=== PATIENT | female | born 1980 | race Caucasian/White ===

== ENCOUNTER 2018-03-12 15:18 | Emergency (ER) | END 2018-03-12 19:45 | disposition home or self-care (01) ==

== ENCOUNTER 2018-12-17 15:30 | Emergency (ER) | payer MEDICAID ==
[~2018-12-17] VITALS: Ht 165.1 cm; Wt 93.4 kg
[~2018-12-17 15:30] MED LIST: IBUP-1542 PO
[2018-12-17 15:45] VITALS: Ht 165.1 cm; Wt 93.4 kg
--- NOTE | 2018-12-17 17:04 | ERD ---
ER Documentation Chief Complaint Chief Complaint GENERALIZED BODY RASH HPI 38-year-old female, at 30 weeks , presents to the emergency department, complaining of generalized erythematous, pruritic body rash. Otherwise, the patient refers feeling fine, adequate movement, no abdominal pain, no vaginal bleeding, no fever or chills. ROS All systems reviewed and are negative except as per history of present illness. Medications Home Meds Active Scripts Cephalexin* (Keflex*) 500 Mg Capsule, 500 MG PO QID for 7 Days, CAP Prov:LAURA COUGHLIN MD 12/17/18 Prednisone* (Prednisone*) 20 Mg Tab, 40 MG PO DAILY for 4 Days, TAB Prov:LAURA COUGHLIN MD 12/17/18 Cetirizine Hcl* (Cetirizine Hcl*) 10 Mg Tablet, 10 MG PO DAILY, #30 TAB Prov:LAURA COUGHLIN MD 12/17/18 Ibuprofen* (Motrin*) 600 Mg Tab, 600 MG PO Q6, #30 TAB Prov:BLANCA CASTANEDA PA-C 03/12/18 Allergies Allergies: Coded Allergies: No Known Allergy (Unverified , 12/17/18) PMhx/Soc History of Surgery: Yes (c sec x's 1) Anesthesia Reaction: No Hx Alcohol Use: No Hx Substance Use: No Hx Tobacco Use: No FmHx Family History: No diabetes, No coronary disease Physical Exam Vitals Vital Signs Date Temp Pulse Resp B/P (MAP) Pulse Ox O2 O2 Flow FiO2 Time Delivery Rate 12/17/18 97.7 81 16 111/65 99 Room Air 18:40 (80) 12/17/18 97.6 91 16 108/56 98 15:45 (73) Physical Exam Const: No acute distress Head: Atraumatic Eyes: Normal Conjunctiva ENT: Normal External Ears, Nose and Mouth. Neck: Full range of motion. No meningismus. Resp: Clear to auscultation bilaterally Cardio: Regular rate and rhythm, no murmurs Abd: Uterus gravid, soft, non tender, non distended. Normal bowel sounds Skin: Discrete erythematous papules predominantly in the abdomen and upper extremities Back: No midline or flank tenderness Ext: No cyanosis, or edema Neur: Awake and alert Psych: Normal Mood and Affect Result Diagram: 12/17/18 1741 12/17/18 1741 Results 24 hrs Laboratory Tests Test 12/17/18 17:41 White Blood Count 9.2 10^3/ul Red Blood Count 3.80 10^6/ul Hemoglobin 10.9 g/dl Hematocrit 32.2 % Mean Corpuscular Volume 84.7 fl Mean Corpuscular Hemoglobin 28.7 pg Mean Corpuscular Hemoglobin Concent 33.9 g/dl Red Cell Distribution Width 15.1 % Platelet Count 304 10^3/UL Mean Platelet Volume 9.8 fl Immature Granulocytes % 1.200 % Neutrophils % 75.9 % Lymphocytes % 15.6 % Monocytes % 5.8 % Eosinophils % 1.1 % Basophils % 0.4 % Nucleated Red Blood Cells % 0.0 /100WBC Immature Granulocytes # 0.110 10^3/ul Neutrophils # 7.0 10^3/ul Lymphocytes # 1.4 10^3/ul Monocytes # 0.5 10^3/ul Eosinophils # 0.1 10^3/ul Basophils # 0.0 10^3/ul Nucleated Red Blood Cells # 0.0 10^3/ul Urine Color STRAW Urine Clarity SLIGHTLY CLOUDY Urine pH 6.0 Urine Specific [place] 1.003 Urine Ketones NEGATIVE mg/dL Urine Nitrite NEGATIVE mg/dL Urine Bilirubin NEGATIVE mg/dL Urine Urobilinogen NEGATIVE mg/dL Urine Leukocyte Esterase 1+ Nayan/ul Urine Microscopic RBC 5 /HPF Urine Microscopic WBC 9 /HPF Urine Squamous Epithelial Cells FEW /HPF Urine Bacteria MANY /HPF Urine Hemoglobin NEGATIVE mg/dL Urine Glucose NEGATIVE mg/dL Urine Total Protein NEGATIVE mg/dl Sodium Level 135 mmol/L Potassium Level 3.9 mmol/L Chloride Level 104 mmol/L Carbon Dioxide Level 21 mmol/L Anion Gap 10 Blood Urea Nitrogen 3 mg/dl Creatinine 0.50 mg/dl Est Glomerular Filtrat Rate mL/min > 60 mL/min Glucose Level 80 mg/dl Calcium Level 8.9 mg/dl Total Bilirubin 0.2 mg/dl Direct Bilirubin 0.00 mg/dl Indirect Bilirubin 0.2 mg/dl Aspartate Amino Transf (AST/SGOT) 17 IU/L Alanine Aminotransferase (ALT/SGPT) 17 IU/L Alkaline Phosphatase 72 IU/L Total Protein 7.1 g/dl Albumin 3.6 g/dl Globulin 3.50 g/dl Albumin/Globulin Ratio 1.02 Current Medications Medications Dose Sig/Tequila Start Time Status Last (Trade) Ordered Route PRN Stop Time Admin Dose Reason Admin Prednisone 40 mg ONCE ONCE 12/17/18 DC 12/17/18 (Prednisone) PO 17:30 17:45 12/17/18 17:34 50 mg ONCE ONCE 12/17/18 DC 12/17/18 Diphenhydrami PO 17:30 17:45 ne HCl 12/17/18 17:34 (Benadryl) Procedures/MDM Differential diagnosis include but not limited to: Cholestasis of , contact dermatitis, infectious process like scabies, tinea, cellulitis, eczema, insect bites. Physical examination and clinical presentation consistent most likely with dermatosis of , the patient was also found to have an incidental urinary tract infection that is going to be treated. During the ED course the patient remained stable, no new complaints. Clinical impression discussed with the patient who agrees with management. The patient is stable to be treated outpatient and will be discharged home with a Rx for steroids and antibiotics for the UTI, some side effects of prescribed medications (headache, rash, nausea, vomiting, diarrhea, interactions with other medications) were reviewed. The patient was instructed to follow up with the primary care provider in the next 48h. If symptoms persist, worsen or new symptoms develop, then patient should return to the ED immediately. Instructions explained and given directly by me to the patient with acknowledgment and demonstrated understanding. Disclaimer: Inadvertent spelling and grammatical errors are likely due to EHR/dictation software use and do not reflect on the overall quality of patient care. Also, please note that the electronic time recorded on this note does not necessarily reflect the actual time of the patient encounter. Departure Diagnosis: Primary Impression: 30 weeks gestation of Additional Impressions: Pruritic erythematous rash UTI (urinary tract infection) Condition: Stable Additional Instructions: Muchas paulino por [facility] para phan servicio. Esperamos que en phan visita a la dorie de emergencia phan problema medico haya sido solucionado y que se sienta mucho mejor. Para estar seguros que phan mejoria sigue en proceso, le pedimos el favor de hacer diana joe de seguimiento medico con phan doctor primario en los proximos 2-4 richardson. Lleve con usted estos documentos y las medicinas recetadas. Si ciera sintomas empeoran, NO SE ESPERE, por favor regrese a dorie de emergencia INMEDIATAMENTE. En anastasia que usted no tenga un mdico de atencin primaria: Llame al mdico o clnica comunitaria de referencia que aparece abajo kevin las horas de consultorio para hacer diana joe para que le vean. CLINICAS: [facility] [phone] [facility] [phone] [facility] [phone] [facility] [phone] [facility] [phone] [facility]. [phone] LAURA JORGE MD Dec 17, 2018 17:04
[2018-12-17] MEDS ORDERED: predniSONE 20 MG TAB PO ONE (17:30)
[2018-12-17] MEDS ORDERED: DIPHENHYDRAMINE 50 MG CAP PO ONE (17:30)
[2018-12-17] MEDS ORDERED: CETI10TA19 PO (18:28)
[2018-12-17] MEDS ORDERED: PRED20TA PO (18:28)
[2018-12-17] MEDS ORDERED: CEPH-443 PO (18:28)
[2018-12-17 18:40] VITALS: BP 111/65; PULSE 81; RESP 16
== END 2018-12-17 18:40 | disposition home or self-care (01) ==
LOC: FTE 15:30
DX: O26.86 Pruritic urticarial papules and plaques of pregnancy (PUPPP) (principal); O23.43 Unspecified infection of urinary tract in pregnancy, third trimester; Z3A.30 30 weeks gestation of pregnancy
CPT/HCPCS: 80053; 81001; 85025; J7512; Z7502; Z7610; 99283

== ENCOUNTER 2019-02-04 13:32 | Inpatient (IN) | payer MEDICAID ==
[~2019-02-04] VITALS: Ht 160 cm; Wt 98.1 kg
[~2019-02-04 13:32] MED LIST changes: +CEPH-443 PO; +CETI10TA19 PO; +PRED20TA PO
[2019-02-04] MEDS ORDERED: PNV11TAB PO (13:40)
[2019-02-04 13:41] VITALS: Ht 160 cm; Wt 98.1 kg
[2019-02-04 13:42] VITALS: BP 111/75; PULSE 83; RESP 19
[2019-02-04] MEDS ORDERED: CARBOPROST 250 MCG INJ IM PRN ×2 (16:00→20:30)
[2019-02-04] MEDS ORDERED: CEFAZOLIN 2 GM/50 ML (PMX) 50 ML IVPB SCH (16:00)
[2019-02-04] MEDS ORDERED: METHYLERGONOVINE 0.2 MG INJ IM PRN ×2 (16:00→20:30)
[2019-02-04] MEDS ORDERED: OXYTOCIN 30 UNITS/LR 500 ML IV SCH ×2 (16:00→20:25)
[2019-02-04] MEDS ORDERED: MISOPROSTOL 200 MCG TAB PR PRN ×2 (16:00→20:30)
[2019-02-04] MEDS ORDERED: OXYTOCIN 30 UNITS/LR 500 ML IV PRN ×2 (16:00→20:30)
[2019-02-04] MEDS: LACTATED RINGER'S 1,000 ML IV SCH ×2 (16:28→23:54)
--- NOTE | 2019-02-04 16:55 | PREAC ---
Date/Time of Note Date/Time of Note DATE: 02/04/19 TIME: 16:54 Anesthesia Eval and Record Evaluation Time Pre-Procedure Interview DATE: 02/04/19 TIME: 16:54 Age 38 Sex female NPO: 8 hrs Preoperative diagnosis labor pain Planned procedure c section Past Medical History Past Medical History: Includes : Gestational age: (37) Surgery & Anesthesia Issues Hx of delayed emergence (spinal not working, put her sleep, woke up 9 pm from 8 am), No known issue Meds Anticoagulation: No Beta Bryanna within 24 hr: No Reason Beta Bryanna not given: Pt. not on B-Bryanna Reported Medications [id number] ( 19) 1 Each Tablet, 1 TAB PO DAILY, TAB 02/04/19 Discontinued Scripts Cephalexin* (Keflex*) 500 Mg Capsule, 500 MG PO QID for 7 Days, CAP Prov:LAURA COUGHLIN MD 12/17/18 Prednisone* (Prednisone*) 20 Mg Tab, 40 MG PO DAILY for 4 Days, TAB Prov:LAURA COUGHLIN MD 12/17/18 Cetirizine Hcl* (Cetirizine Hcl*) 10 Mg Tablet, 10 MG PO DAILY, #30 TAB Prov:LAURA COUGHLIN MD 12/17/18 Ibuprofen* (Motrin*) 600 Mg Tab, 600 MG PO Q6, #30 TAB Prov:BLANCA CASTANEDA PA-C 03/12/18 Current Medications Lactated Ringer's 1,000 ml @ 125 mls/hr Q8H IV Last administered on 02/04/19at 16:28; Admin Dose 125 MLS/HR; Start 02/04/19 at 15:54 Cefazolin Sodium/ Dextrose 50 ml @ 100 mls/hr ONCE IVPB ; Start 02/04/19 at 16:00 Oxytocin/Lactated Ringer's 500 ml @ 125 mls/hr POST IV ; Start 02/04/19 at 16:00 Oxytocin/Lactated Ringer's 500 ml @ 0 mls/hr ONCE PRN IV .VAGINAL BLEEDING; Start 02/04/19 at 16:00 Methylergonovine Maleate (Methergine) 0.2 mg ONCE PRN IM .VAGINAL BLEEDING; Start 02/04/19 at 16:00 Carboprost Tromethamine (Hemabate) 250 mcg ONCE PRN IM .VAGINAL BLEEDING; Start 02/04/19 at 16:00 Misoprostol (Cytotec) 1,000 mcg ONCE PRN MN .VAGINAL BLEEDING; Start 02/04/19 at 16:00 Meds reviewed: Yes Allergies Coded Allergies: No Known Allergy (Unverified , 12/17/18) Allergies Reviewed: Yes Labs/Studies Labs Reviewed: Reviewed by anesthesiologist Result Diagram: 02/04/19 1630 Laboratory Tests 02/04/19 16:30 test: Positive Studies: ECG (n/a), CXR (n/a) Pre-procedure Exam Last vitals Vital Signs Date Temp Pulse Resp B/P (MAP) Pulse Ox O2 O2 Flow FiO2 Time Delivery Rate 02/04/19 98.6 83 19 111/75 13:42 (87) Airway: Adequate mouth opening Mallampati: Mallampati I Teeth: Normal Lung: Normal Heart: Normal ASA Physical Status ASA physical status: 2 Emergency: None Planned Anesthetic Neuraxial: Spinal Planned Pain Management Sub-arachniod narcotics Pre-operative Attestations Prior to commencing anesthesia and surgery, the patient was re-evaluated, there was verification of: *The patient's identity *The results of appropriate recent lab work and preoperative vital signs *The above evaluation not changing prior to induction *Anesthetic plan, risk benefits, alternative and complications discussed with patient/family; questions answered; patient/family understands, accepts and wishes to proceed. DYLAN ZIEGLER MD Feb 04, 2019 16:55
--- NOTE | 2019-02-04 17:35 | PREOPHP ---
DATE OF ADMISSION: 02/04/2019 HISTORY OF PRESENT ILLNESS: Ms. Julia Rojo is a 38-year-old 2, para 1, EDC 02/24/2019, i ntrauterine at 37 weeks and 1 day gestational age, presented to triage complaining of contr actions since last night. She denies any headache, nausea, vomiting, shortness of breath, visual scott nge or epigastric pain. She had a limited ultrasound performed with fetus in breech presentation. A fter explaining the risks, benefits and alternatives, the patient desires an elective delive ry. Her care took place with Dr. Pichardo. PAST MEDICAL HISTORY: None. MEDICATIONS: vitamins. PAST SURGICAL HISTORY: None. OBSTETRICAL HISTORY: x1 . GYNECOLOGIC HISTORY: 12, regular 3 to 4 days. Denies any sexually transmitted infections. Sexually active with 1 partner. SOCIAL HISTORY: Denies any smoking, drugs or alcohol. FAMILY HISTORY: None. REVIEW OF SYSTEMS: All within normal except history of present illness. PHYSICAL EXAMINATION: HEENT: Within normal. LUNGS: CTA bilateral. CARDIOVASCULAR: S1, S2. Regular rate, rhythm. ABDOMEN: Gravid, nontender. Negative CVA bilateral. EXTREMITIES: No calf tenderness. PELVIC: Vaginal exam: 2 cm dilated, 50% effaced, head is not palpable. DIAGNOSTIC DATA: Preliminary ultrasound: Fetus in breech presentation. heart tracing categor y 1. Witmer: Regular contractions. ASSESSMENT: 1. A 38-year-old 2, para 1, intrauterine at 37 weeks and 1 day gestational age. 2. Advanced maternal age. 3. Previous section x1, in labor. 4. malpresentation. 5. Desires elective repeat delivery. 6. Declined vaginal after . PLAN: Consent for a repeat delivery. Risks, benefits and alternatives were explained. All questions were answered. Dictated By: HORTENSIA IRAHETA/JARED Conf#: [id number] DID#: [id number]
[2019-02-04] MEDS ORDERED: morphine SULFATE/PF (10 MG/10 ML) INJ ONE (18:14)
[2019-02-04] MEDS ORDERED: ONDANSETRON 4 MG INJ ONE (18:15)
[2019-02-04] MEDS ORDERED: METOCLOPRAMIDE 10 MG INJ ONE (18:15)
[2019-02-04] MEDS ORDERED: KETOROLAC 30 MG INJ ONE (18:23)
[2019-02-04] MEDS ORDERED: EPHEDrine 25 MG/5 ML SYG ONE (18:46)
[2019-02-04] MEDS ORDERED: PHENYLephrine (100 MCG/ML) 10ML SYG ONE (18:59)
[2019-02-04] MEDS ORDERED: ONDANSETRON 4 MG INJ IV PRN ×2 (19:30)
[2019-02-04] MEDS ORDERED: NALOXONE (0.4 MG/ML) INJ IV PRN (19:30)
[2019-02-04] MEDS ORDERED: MEPERIDINE 25 MG INJ IV PRN (19:30)
[2019-02-04] MEDS ORDERED: DIPHENHYDRAMINE 50 MG INJ IV PRN ×2 (19:30)
[2019-02-04] MEDS ORDERED: KETOROLAC 30 MG INJ IV PRN ×2 (19:30)
[2019-02-04] MEDS ORDERED: morphine 2 MG INJ IV PRN ×6 (19:30)
--- NOTE | 2019-02-04 20:25 | OPPN ---
Date/Time of Note Date/Time of Note DATE: 02/04/19 TIME: 20:24 Operative Report Planned Procedure Procedure date Feb 04, 2019 Procedure(s) repeat low transverse CD Performed by see signature line Technical Business Systems Analyst: FIOR REECE MD 2nd Technical Business Systems Analyst none Anesthesiologist: DYLAN ZIEGLER MD Pre-procedure diagnosis 1. A 38-year-old 2, para 1, intrauterine at 37 weeks and 1 day gestational age. 2. Advanced maternal age. 3. Previous section x1, in labor. 4. malpresentation. 5. Desires elective repeat delivery. 6. Declined vaginal after . Lyxse6Ka Anesthesia Type: Sfmuz3y spinal Post-Procedure Post-procedure diagnosis same Findings Live Baby [], Apgars [] and [], weight [], position [], [] presentation []cord. Estimated Blood Loss: 500 - 600 mls Specimen(s) none Grafts/Implant(s) none Complication(s) none HORTENSIA BENÍTEZ MD Feb 04, 2019 20:25
[2019-02-04] MEDS ORDERED: LANOLIN HPA 1 PKT TOP PRN (20:30)
[2019-02-04] MEDS ORDERED: NACL 0.9% 3 ML SYG IV SCH (20:30)
[2019-02-04] MEDS: CEFAZOLIN 2 GM/50 ML (PMX) 50 ML IVPB SCH (21:33)
[2019-02-04 22:15] VITALS: BP 101/57; PULSE 79; RESP 19
[2019-02-05 04:30] VITALS: BP 99/55; PULSE 86; RESP 19
[2019-02-05] MEDS: CEFAZOLIN 2 GM/50 ML (PMX) 50 ML IVPB SCH ×2 (05:10→13:16)
--- NOTE | 2019-02-05 07:08 | OPPN ---
Date/Time of Note Date/Time of Note DATE: 02/05/19 TIME: 07:06 Anesthesia Follow up Anesthesia Follow up Last documented vital signs Vital Signs Date Temp Pulse Resp B/P (MAP) Pulse Ox O2 O2 Flow FiO2 Time Delivery Rate 02/05/19 98.3 86 19 99/55 (70) Room Air 04:30 Respiratory function: WNL Cardiovascular function: WNL Comments A 38 year female s/p spina duramorph for post o pain POD #1 is doing fine. No pain, itching, N/V, headache, neural deficit. care per surgery DYLAN ZIEGLER MD Feb 05, 2019 07:08
--- NOTE | 2019-02-05 07:09 | PAC ---
Date/Time of Note Date/Time of Note DATE: 02/05/19 TIME: 07:08 Post-Anesthesia Notes Post-Anesthesia Note Last documented vital signs Vital Signs Date Temp Pulse Resp B/P (MAP) Pulse Ox O2 O2 Flow FiO2 Time Delivery Rate 02/05/19 98.3 86 19 99/55 (70) 99 Room Air 04:30 Activity: WNL Respiratory function: WNL Cardiovascular function: WNL Mental status: Baseline Pain reasonably controlled: Yes Hydration appropriate: Yes Nausea/Vomiting absent: No DYLAN ZIEGLER MD Feb 05, 2019 07:09
[2019-02-05 08:00] VITALS: BP 93/55; PULSE 74; RESP 18
--- NOTE | 2019-02-05 08:12 | QN ---
Documentation Comment progress note pod 1 patient was seen and evaluated no complaints vs stable afebrile ab dressing clean/dry no distention extremity no edema no calf tenderness a/ sp cd pod 1 stable afebrile p/ continue present management HORTENSIA BENÍTEZ MD Feb 05, 2019 08:12
--- NOTE | 2019-02-05 08:29 | OPR ---
DATE OF OPERATION: 02/04/2019 PRIMARY DIAGNOSIS: A 38-year-old 2, para 1, intrauterine at 37 weeks and 1 day ges tational age, advanced maternal age, previous x1, in labor, malpresentation, desires elective repeat delivery. Declined vaginal after . POSTOPERATIVE DIAGNOSIS: A 38-year-old 2, para 1, intrauterine at 37 weeks and 1 d ay gestational age, advanced maternal age, previous x1, in labor, malpresentation, de sires elective repeat delivery. Declined vaginal after . OPERATION PERFORMED: Repeat low transverse delivery. SURGEON: Paul Elias MD NUCLEAR MEDICINE OFFICER: Dr. Mehta. ESTIMATED BLOOD LOSS: 500 mL. COMPLICATIONS: None. ANESTHESIA: Spinal. FINDINGS: A viable female, in footling breech presentation, 9 and 9 respectively at 1 and 5 mi nutes. Normal uterus, tubes and ovaries. DESCRIPTION OF PROCEDURE: After explaining the risks, benefits and alternatives, the patient had con sent signed in chart, the patient was taken to the operating room where spinal anesthesia was found t o be adequate. She was then prepared and draped in normal sterile fashion in dorsal position with a leftward tilt. A Pfannenstiel skin incision was then made with a scalpel and carried to the underlyi ng of the fascia. The fascia was incised in midline and incision was extended laterally with Rice sc issors. The superior aspect of the fascial incision was grasped with curved clamps, elevated and the underlying rectus muscles dissected off bluntly. Attention was then turned to the inferior aspect o f incision, which in similar fashion was grasped, tented up with curved clamps and rectus muscles dis sected off bluntly. The rectus muscle was in midline, peritoneum identified, tented up, an d sharply with Metzenbaum scissors. The peritoneal incision was extended superiorly with good visual ization of bladder. The bladder blade was then inserted and the lower uterine segment incised in tra nsverse fashion with a scalpel. The uterine incision was extended laterally. The bladder blade was removed and the 's feet were delivered to the level of the scapula. The right arm was flipped across the chest and delivered. Similarly, the left arm was flipped across the chest and delivered. The head was delivered atraumatically. The nose and mouth were suctioned and cord clamped and cut. The infant was handed off to awaiting book mender. The placenta was then removed. The uteru s extracted and cleared of all clots and debris. The uterine incision was repaired with 1-0 chromic in a running locked fashion. A second layer of same suture was used for imbrication and obtained exc ellent hemostasis. The uterus was returned to the abdomen. The gutters were cleared of all clots. The peritoneum and rectus abdominis muscles were approximated with 2-0 Vicryl in interrupted fashion. The fascia was reapproximated with 0 Vicryl in a running fashion. The subcutaneous tissue was reap proximated with 2-0 plain gut in a running fashion. The skin was closed with absorbable pilar. Th e patient tolerated procedure well. Sponge, lap and needle counts were correct. The patient was neva en to recovery room in stable condition. Dictated By: PAUL IRAHETA/JARED Conf#: [id number] DID#: [id number]
[2019-02-05] MEDS: FERROUS SULFATE (EC) 325 MG TAB PO SCH ×2 (10:44→20:50)
[2019-02-05 12:00] VITALS: BP 98/55; PULSE 74; RESP 19
[2019-02-05] MEDS: LACTATED RINGER'S 1,000 ML IV SCH ×3 (14:22→23:54)
[2019-02-05 16:00] VITALS: BP 95/57; PULSE 78; RESP 19
[2019-02-05 19:40] VITALS: BP 122/79; PULSE 62; RESP 19
[2019-02-05] MEDS: IBUPROFEN 800 MG TAB PO SCH (21:58)
[2019-02-06] MEDS: OXYCODONE/ACETAMINOPHEN (5/325) TAB PO PRN ×3 (03:07→16:48)
[2019-02-06 04:00] VITALS: BP 106/68; PULSE 73; RESP 20
[2019-02-06] MEDS: IBUPROFEN 800 MG TAB PO SCH ×3 (05:39→21:44)
[2019-02-06] MEDS: LACTATED RINGER'S 1,000 ML IV SCH (07:54)
[2019-02-06 08:00] VITALS: BP 109/70; PULSE 72; RESP 18
[2019-02-06] MEDS: FERROUS SULFATE (EC) 325 MG TAB PO SCH ×2 (09:07→21:10)
[2019-02-06 16:00] VITALS: BP 103/78; PULSE 54; RESP 19
[2019-02-06 19:50] VITALS: BP 117/68; PULSE 69; RESP 20
--- NOTE | 2019-02-06 21:23 | QN ---
Documentation Comment Postop day #2 Status post repeat Patient stable and afebrile Vital signs stable VS - Last 72 Hours, by Label Date Temp Pulse Resp B/P (MAP) Pulse Ox O2 O2 Flow FiO2 Time Delivery Rate 02/07/19 97.9 65 18 100/61 Room Air 09:12 (74) 02/07/19 98.4 71 19 99/59 (72) Room Air 04:35 02/06/19 98.5 69 20 117/68 Room Air 19:50 (84) 02/06/19 98.0 54 19 103/78 Room Air 16:00 (86) 02/06/19 97.3 72 18 109/70 08:00 (83) 02/06/19 98.0 73 20 106/68 Room Air 04:00 (81) 02/05/19 98.3 62 19 122/79 Room Air 19:40 (93) 02/05/19 98.4 78 19 95/57 (70) 96 Room Air 16:00 02/05/19 98.3 74 19 98/55 (69) 96 Room Air 12:00 02/05/19 97.9 74 18 93/55 (68) 96 Room Air 08:00 02/05/19 98.3 86 19 99/55 (70) Room Air 04:30 02/04/19 98.3 79 19 101/57 Room Air 22:15 (72) Hematology - 72 Hrs Test 02/05/19 07:31 Hematocrit 30.9 % (37.0-47.0) L Hemoglobin 10.3 g/dl (12.0-16.0) L Mean Corpuscular Hemoglobin 27.6 pg (29.0-33.0) L Mean Corpuscular Hemoglobin Concent 33.3 g/dl (32.0-37.0) Mean Corpuscular Volume 82.8 fl (82.0-101.0) Mean Platelet Volume 10.0 fl (7.4-10.4) Platelet Count 212 10^3/UL (140-415) Red Blood Count 3.73 10^6/ul (4.20-5.40) L Red Cell Distribution Width 15.2 % (11.5-14.5) H White Blood Count 10.1 10^3/ul (4.8-10.8) # Abdomen soft, fundus firm Incision clean,dry,intact Extremities nontender Assessment and plan Patient stable and doing well Encouraged to ambulate Continue with routine postop care TERRY HERNANDEZ MD Feb 06, 2019 21:23
[2019-02-07] MEDS: OXYCODONE/ACETAMINOPHEN (5/325) TAB PO PRN ×2 (02:32→09:19)
[2019-02-07 04:35] VITALS: BP 99/59; PULSE 71; RESP 19
[2019-02-07] MEDS: IBUPROFEN 800 MG TAB PO SCH (05:48)
[2019-02-07] MEDS: FERROUS SULFATE (EC) 325 MG TAB PO SCH (09:07)
[2019-02-07 09:12] VITALS: BP 100/61; PULSE 65; RESP 18
--- NOTE | 2019-02-07 09:27 | QN ---
Documentation Comment progress note pod 3 patient was seen and evaluated no complaints vs stable afebrile ab incision clean/dry/ intact no distention extremity no edema no calf tenderness a/ sp cd pod 3 stable afebrile p/ discharge home today HORTENSIA BENÍTEZ MD Feb 07, 2019 09:27
--- NOTE | 2019-02-07 09:28 | PD.PPDC ---
CHARGE GANG WEIGHER Discharge Instruction Condition [id number] Patient Condition: Xclqs7m Fair Diet Gshvb6Kr Diet: Xyzwb5j Resume Regular Diet Activity/Restrictions Oixam1Xx Activity: Etwyt2c Normal Activity May Shower Estmm5Zx Restrictions: Jlciq4i No Exercising No Lifting No Driving No Sexual Activity Nothing in the Vagina No [place] No Tampons, douche Follow-up Follow-up with Physician: 2, Week/Weeks Return to clinic for Zftlb8Az GIMP TACKER Instructions: Kctjl3k Fever greater than 101 Chills Worsening abdominal pain Excessive Vaginal Bleeding More than 2 pads per hour Unable to tolerate diet Stfzq8Ok OB Instructions: Rglpx9i Breast Tenderness Depression Blurried Vision Headache Wqbdi9Lx Surgical Instructions: Txirv1j Incisional Drainage Incisional Redness HORTENSIA BENÍTEZ MD Feb 07, 2019 09:28
[2019-02-07] MEDS ORDERED: DIPHTH/TET/ACEL PERTUSS (ADULT) 0.5 ML VIAL IM* ONE (10:00)
--- NOTE | 2019-02-07 10:46 | DS ---
DATE OF ADMISSION: 02/04/2019 DATE OF DISCHARGE: 02/07/2019 PRIMARY DIAGNOSIS: A 38-year-old 2, para 1, intrauterine at 37 weeks and 1 day ges tational age, advanced maternal age, previous x1, in labor, malpresentation, desires elective repeat delivery, declined . PROCEDURE: Repeat low transverse delivery. CONDITION ON DISCHARGE: Stable. ACTIVITY: None per vagina, no lifting x6 weeks. DIET: Regular. MEDICATIONS ON DISCHARGE: 1. Motrin. 2. Iron. 3. Colace. DISCHARGE SUMMARY: Ms. Julia Rojo underwent a repeat delivery on 02/04/2019. She had a viable female, in footling breech presentation, Apgars 9 and 9 respectively at 1 and 5 minutes. She had an uneventful postoperative day #1, #2, and #3. Her incision is clean, dry, intact. She is amb ulating, tolerating diet, positive flatulence, positive bowel movement. She will follow up in clinic in 2 weeks for /postop care. Dictated By: HORTENSIA IRAHETA/JARED Conf#: [id number] DID#: [id number]
--- NOTE | 2019-02-08 12:53 | DELSUM ---
Delivery Summary A-C Datetime Report Generated by CPN: 02/08/2019 12:52 DELIVERY PERSONNEL Piece Jobber: Marco A, Alisa MATERNAL INFORMATION Delivery Anesthesia: Spinal Medications in Delivery: 30 UNITS OF PIT IN 500 CC LR Delivery QBL (ml): 500 Placenta Cultured: No Maternal Complications: None RN Comments: 37.1 WEEKS CAME IN LABOR LABOR SUMMARY EDC: 02/24/2019 00:00 No. Babies in Womb: 1 Attempted: No Labor Anesthesia: None LABOR INFORMATION Reason for Induction: Not Applicable Onset of Labor: 02/04/2019 08:00 Oxytocin: N/A Group B Beta Strep: Done, Result Unknown Antibiotics # of Doses: 1 Antibiotics Time of Last Dose: 02/04/2019 18:23 Steroids Given: None Reason Steroids Not Administered: Not Applicable MEMBRANES Membranes Rupture Method: Artificial Rupture of Membranes: 02/04/2019 18:41 Length of Rupture (hr): 0.02 Amniotic Fluid Color: Clear Amniotic Fluid Amount: Moderate Amniotic Fluid Odor: Normal STAGES OF LABOR Stage 3 hr: 0 Stage 3 min: 1 Total Time in Labor hr: 10 Total Time in Labor min: 43 CSECTION DELIVERY Primary Indication: Repeat Elective Secondary Indication: Other Other Secondary Indication: IN LABOR CSection Urgency: Elective CSection Incidence: Repeat Labor: Labor Elective: Elective CSection Incision: Lower Uterine Transverse BABY A INFORMATION Infant Delivery Date/Time: 02/04/2019 18:42 Method of Delivery: Born in Route : No : N/A Forceps: N/A Vacuum Extraction: N/A Shoulder Dystocia : N/A SHOULDER DYSTOCIA BABY A Delivery Date/Time: 02/04/2019 18:42 PRESENTATION/POSITION BABY A Presentation: Breech Cephalic Presentation: N/A Breech Presentation: Double Footling PLACENTA INFORMATION BABY A Placenta Delivery Time : 02/04/2019 18:43 Placenta Method of Delivery: Manual Removal Placenta Status: Delivered SCORES BABY A Heart Rate 1 min: >100 bpm Resp Effort 1 min: Good Cry Reflex Irritability 1 min: Cough/Sneeze/Pulls Away Muscle Tone 1 min: Active Motion Color 1 min: Blue/Pale Resuscitation Effort 1 min: Tactile Stimulation SCORE 1 MIN: 8 Heart Rate 5 min: >100 bpm Resp Effort 5 min: Good Cry Reflex Irritability 5 min: Cough/Sneeze/Pulls Away Muscle Tone 5 min: Active Motion Color 5 min: Body [place], Extremit Blue Resuscitation Effort 5 min: Tactile Stimulation SCORE 5 MIN: 9 INFANT INFORMATION BABY A Gestational Age at Delivery: 37.1 Gestational Status: Early Term- 37- 38.6 Weeks Infant Outcome : Liveborn Infant Condition : Stable Sex: Female IDENTIFICATION/MEDS BABY A ID Band Number: [id number] ID Band Location: Right Leg; Left Arm Sensor Applied: Yes Sensor Number: [id number] Sensor Location : Cord Clamp Vitamin K Given : Not Given Erythromycin Given: Not Given WEIGHT/LENGTH BABY A Infant Birthweight (gm): 2735 Infant Weight (lb): 6 Weight (oz): 0 Length (in): 19.50 Length (cm): 49.53 CORD INFORMATION BABY A No. Cord Vessels: 3 Nuchal Cord : N/A Infant Suction: Mouth; Nose ASSESSMENT BABY A Complications: None Physical Findings at Delivery: Within Normal Limits Infant Respirations: Appears Normal Painter And Body Mechanic Apprentice/ALS Called : Yes Care By: DIO Villasenor / Sam RT Transferred To: Remains with Mother
== END 2019-02-07 12:52 | disposition home or self-care (01) | DRG 788 ==
LOC: OBT 13:32 → L-D 13:33 → OBT 16:00 → L-D 16:00 → PP1 22:20
PROVIDERS: ADMIT Obstetrics & Gynecology; ATTEND Obstetrics & Gynecology
PROC: 10D00Z1 Extraction of Products of Conception, Low, Open Approach (ICD-10-PCS; principal; 2019-02-04 17:30)
DX: O32.8XX0 Maternal care for other malpresentation of fetus, not applicable or unspecified (principal); O34.211 Maternal care for low transverse scar from previous cesarean delivery; Z3A.37 37 weeks gestation of pregnancy; Z37.0 Single live birth; Z23 Encounter for immunization
CPT/HCPCS: 76815; 76818; 85025; 85610; 85730; 86592; 86850; 86900; 86901; 87340; 90715; 99464; G0463; J0690; J1885; J2210; J2274; J2370; J2405; J2590; J2765; J7120